=== PATIENT | female | born 1955 | race Caucasian/White ===

== ENCOUNTER 2021-11-06 17:14 | Emergency (ER) | payer MEDICARE, BC ==
[2021-11-06] MEDS ORDERED: Ibuprofen 600 MG Tab PO ONE (17:28)
[2021-11-06 19:23] VITALS: BP 138/63; PULSE 72
== END 2021-11-06 19:23 | disposition home or self-care (01) ==
LOC: MW.ED 17:14
DX: S52.592A Other fractures of lower end of left radius, initial encounter for closed fracture (principal); Z88.8 Allergy status to other drugs, medicaments and biological substances; W23.1XXA Caught, crushed, jammed, or pinched between stationary objects, initial encounter
CPT/HCPCS: 29105; 73110; 99283; A9270